=== PATIENT | female | born 1975 | race Two or more races ===

== ENCOUNTER 2018-06-11 05:48 | Outpatient (CLI) | payer BC ==
[2018-06-11 09:41] LABS: BASOPHILS % (AUTO) 0.4 % (0.0-2.0); EOSINOPHILS % (AUTO) 1.3 % (0.0-6.0); HEMATOCRIT 42 % (33-45); HEMOGLOBIN 14.4 g/dL (11.5-14.8); LYMPHOCYTES # (AUTO) 2.4 /CMM (0.8-4.8); MEAN CORPUSCULAR HGB CONC 34 g/dl (31.0-36.0); MEAN CORPUSCULAR VOLUME 91 fL (82-100); MONOCYTES # (AUTO) 0.5 /CMM (0.1-1.30); MONOCYTES % (AUTO) 7.5 % (2.0-12.0); NEUTROPHILS # (AUTO) 3.2 /CMM (1.8-8.9); NEUTROPHILS % (AUTO) 51.8 % (43.0-81.0); PLATELET COUNT (AUTO) 260 /CMM (150-450); RED BLOOD CELL COUNT(AUTO) 4.64 MIL/uL (4.0-5.2); WHITE BLOOD COUNT (AUTO) 6.1 K/uL (4.3-11.0)
[2018-06-11 09:46] LABS: APPEARANCE,URINE CLEAR (CLEAR); BILIRUBIN,URINE NEGATIVE (NEGATIVE); BLOOD, URINE NEGATIVE Ery/uL (NEGATIVE); COLOR,URINE YELLOW (YELLOW); KETONES,URINE NEGATIVE (NEGATIVE); LEUKOCYTE ESTERASE ,URINE TRACE (NEGATIVE); NITRITE, URINE NEGATIVE (NEGATIVE); PROTEIN,URINE NEGATIVE (NEGATIVE); UGLUCOSE NEGATIVE (NEGATIVE); UROBILINOGEN,URINE 0.2 EU/dL (0.2)
[2018-06-11 09:48] LABS: BACTERIA,URINE Few /HPF (None Seen); RBC,URINE 0-2 /HPF (0-2)
[2018-06-11 09:56] LABS: BILIRUBIN,TOTAL 0.4 mg/dL (0.2-1.0); CALCIUM, SERUM 8.8 mg/dL (8.5-10.1); CREATININE 0.8 mg/dL (0.6-1.3); POTASSIUM 4.2 mmol/L (3.5-5.1); TOTAL PROTEIN, SERUM 7.8 g/dL (6.4-8.2)
[2018-06-11 10:04] LABS: THYROID STIMULATING HORMONE 1.776 uIU/mL (0.358-3.74)
[2018-06-11 10:12] LABS: ALBUMIN 4.2 g/dL (3.4-5.0)
[2018-06-12 08:08] LABS: T3, FREE 3.5 pg/mL (2.0-4.4)
== END 2018-06-11 23:59 | disposition home or self-care (01) ==
LOC: LAB 05:48
PROVIDERS: ATTEND Obstetrics & Gynecology
DX: Z01.411 Encounter for gynecological examination (general) (routine) with abnormal findings (principal); R53.81 Other malaise; R53.83 Other fatigue
CPT/HCPCS: 36415; 80053-TC; 80061-TC; 81000-TC; 84439-TC; 84443-TC; 84481; 85025-TC; 85610-TC; 85730-TC; 86593; 87806

== ENCOUNTER 2019-07-21 15:01 | Emergency (ER) | payer BC, OTHER ==
[~2019-07-21] VITALS: Ht 160 cm; Wt 72.6 kg
[2019-07-21] MEDS ORDERED: IV NS 0.9% 1,000 ML BAG IV ONE (15:30)
--- NOTE | 2019-07-21 15:50 | NUR ---
PT PRESENTED TO THE ER WITH FEVER, COUGH WITH CONGESTION, NOT FEELING WELL. PT REC'D A 20G IV IN LAC. 1L NS IS INFUSING.
--- NOTE | 2019-07-21 15:55 | NUR ---
SWABS DONE AND SENT TO LAB.
--- NOTE | 2019-07-21 17:20 | NUR ---
Patient discharged to home in stable condition. Written and verbal after care instructions given. Patient verbalizes understanding of instruction. PT TO F/U WITH [employer]. PT'S O2 SAT WAS 99% ON RA. VSS. NAD NOTED. PT AMBULATED OUT WITH A STEADY GAIT.
[2019-07-21 17:41] VITALS: BP 115/76
== END 2019-07-21 17:41 | disposition home or self-care (01) ==
LOC: ER 15:03
DX: U07.1 COVID-19 (principal); R05 Cough; R53.81 Other malaise; R00.0 Tachycardia, unspecified
CPT/HCPCS: 0099U; 36415; 71045; 87635; 87804; 96360; 99284; J7030

== ENCOUNTER 2019-09-07 13:10 | Emergency (ER) | payer OTHER ==
[~2019-09-07] VITALS: Ht 162.6 cm; Wt 74.8 kg
[2019-09-07 13:25] VITALS: BP 106/71
== END 2019-09-07 14:30 | disposition home or self-care (01) ==
LOC: ER 13:12
DX: Z09 Encounter for follow-up examination after completed treatment for conditions other than malignant neoplasm (principal); Z86.19 Personal history of other infectious and parasitic diseases
CPT/HCPCS: 99283; C9803; U0003